=== PATIENT | female | born 1995 | race Two or more races ===

== ENCOUNTER 2021-06-20 14:25 | Inpatient (IN) | payer OTHER ==
[~2021-06-20] VITALS: Ht 167.6 cm; Wt 106.6 kg
[2021-06-20] MEDS ORDERED: IPRATROPIUM BROMIDE (0.02%) 0.5MG/2.5ML NEB HHN ONE (17:15)
[2021-06-20] MEDS ORDERED: LACTATED RINGERS 1,000 ML IV SCH (17:15)
[2021-06-20] MEDS ORDERED: DEXAMETHASONE 4MG/ML 1ML VIAL IV ONE (17:15)
[2021-06-20] MEDS ORDERED: ALBUTEROL (0.083%) 2.5MG/3ML NEB HHN ONE (17:15)
[2021-06-20 17:18] LABS: BASOPHILS % 0.2 % (0.0-2.0); HEMATOCRIT. 43.8 % (36.0-48.0); HEMOGLOBIN. 14.3 g/dL (12.0-16.0); LYMPHOCYTES % 19.4 % (20.0-50.0); MEAN CORPUSCULAR HEMOGLOBIN 26.2 pg (28.0-32.0); MEAN CORPUSCULAR VOLUME 80.5 fL (81.0-99.0); MEAN PLATELET VOLUME 8.6 fl (7.4-10.4); MONOCYTES % 5.2 % (2.0-8.0); NEUTROPHILS % 75.2 % (40.0-76.0); PLATELET 234 x1000/uL (130-400); RED BLOOD CELL COUNT 5.44 mill/uL (4.2-5.4); RED CELL DISTRIBUTION WIDTH 13.6 % (11.6-14.6)
[2021-06-20 17:24] LABS: CHLORIDE 106 mEq/L (98-107)
[2021-06-20] MEDS ORDERED: KETOROLAC 15MG/ML VIAL IV ONE (17:45)
[2021-06-20 18:20] LABS: CLARITY URINE CLEAR (CLEAR); COLOR URINE ORANGE (YELLOW); KETONES URINE NEGATIVE (NEGATIVE); LEUKOCYTE ESTERASE URINE TRACE (NEGATIVE); NITRITE URINE NEGATIVE (NEGATIVE); OCCULT BLOOD URINE 3+ (NEGATIVE); PH URINE 6.5 (4.5-8.0); PROTEIN URINE 3+ (NEGATIVE); SPECIFIC GRAVITY URINE 1.012 (1.005-1.030)
[2021-06-20] MEDS ORDERED: KETOROLAC 30MG/ML VIAL IV NR (18:30)
[2021-06-20 23:40] VITALS: BP 128/69
[2021-06-21] MEDS ORDERED: ACETAMINOPHEN 325MG TABLET PO PRN (00:15)
[2021-06-21] MEDS ORDERED: ENOXAPARIN 40MG/0.4ML SYR SUBCUT SCH (00:15)
[2021-06-21 00:30] VITALS: BP_SYST 119; BP_SYST 128; BP_DIAS 69
[2021-06-21] MEDS ORDERED: PRED5TAB48 PO (02:14)
[2021-06-21] MEDS ORDERED: ALBU6.7H9 INH (02:14)
[2021-06-21] MEDS: ALBUTEROL 6.7GM HFA INHALER ORI SCH ×4 (02:44→17:22)
[2021-06-21] MEDS: CEFTRIAXONE 1,000 MG in DEXTROSE 5% WATER 50 ML IV SCH (02:44)
[2021-06-21] MEDS: AZITHROMYCIN 500 MG in DEXT 5% WATER 250 ML IV SCH (02:45)
[2021-06-21 04:00] VITALS: BP 132/88
[2021-06-21 08:00] VITALS: BP 117/77
[2021-06-21] MEDS: FAMOTIDINE 20MG TABLET PO SCH ×2 (09:10→20:03)
[2021-06-21] MEDS: DEXAMETHASONE 10 MG/ML VIAL IV SCH (09:10)
[2021-06-21] MEDS: ENOXAPARIN 30MG/0.3ML SYR SUBCUT SCH ×2 (09:11→20:04)
[2021-06-21 12:00] VITALS: BP 123/79
[2021-06-21 16:00] VITALS: BP 132/72
[2021-06-21] MEDS ORDERED: ONDANSETRON HCL 4MG/2ML INJ IV PRN (16:15)
[2021-06-21] MEDS ORDERED: MAGNESIUM/ALUMINUM HYDROXIDE/SIMETHICONE 30ML UDC PO PRN (16:15)
[2021-06-21] MEDS ORDERED: CLONIDINE 0.1MG TABLET PO PRN (16:15)
[2021-06-21 20:00] VITALS: BP 115/62
[2021-06-21] MEDS: HYDROCODONE/ACETAMINOPHEN 5/325MG TABLET PO PRN (20:05)
[2021-06-22 00:13] VITALS: BP 118/72
[2021-06-22] MEDS: ALBUTEROL 6.7GM HFA INHALER ORI SCH ×4 (00:57→17:37)
[2021-06-22] MEDS: CEFTRIAXONE 1,000 MG in DEXTROSE 5% WATER 50 ML IV SCH (01:03)
[2021-06-22] MEDS: AZITHROMYCIN 500 MG in DEXT 5% WATER 250 ML IV SCH (02:37)
[2021-06-22] MEDS: GUAIFENESIN-DM 200MG-20MG/10ML UDC PO PRN ×3 (03:53→22:16)
[2021-06-22 04:00] VITALS: BP 130/87
[2021-06-22] MEDS: HYDROCODONE/ACETAMINOPHEN 5/325MG TABLET PO PRN ×3 (05:36→23:20)
[2021-06-22 06:13] LABS: BASOPHILS % 0.2 % (0.0-2.0); EOSINOPHILS % 0.2 % (0.0-5.0); HEMATOCRIT. 37.6 % (36.0-48.0); HEMOGLOBIN. 12.7 g/dL (12.0-16.0); LYMPHOCYTES % 29.2 % (20.0-50.0); MEAN CORPUSCULAR HEMOGLOBIN 27.2 pg (28.0-32.0); MEAN CORPUSCULAR VOLUME 80.5 fL (81.0-99.0); MEAN PLATELET VOLUME 8.1 fl (7.4-10.4); MONOCYTES % 11.7 % (2.0-8.0); NEUTROPHILS % 58.7 % (40.0-76.0); PLATELET 288 x1000/uL (130-400); RED BLOOD CELL COUNT 4.67 mill/uL (4.2-5.4); RED CELL DISTRIBUTION WIDTH 13.6 % (11.6-14.6)
[2021-06-22 06:22] LABS: CHLORIDE 106 mEq/L (98-107)
[2021-06-22 08:00] VITALS: BP 119/72
[2021-06-22] MEDS: DEXAMETHASONE 10 MG/ML VIAL IV SCH (08:24)
[2021-06-22] MEDS: FAMOTIDINE 20MG TABLET PO SCH ×2 (08:24→20:33)
[2021-06-22] MEDS: ENOXAPARIN 30MG/0.3ML SYR SUBCUT SCH ×2 (08:25→20:33)
[2021-06-22 12:00] VITALS: BP 117/57
[2021-06-22 16:00] VITALS: BP 124/80
[2021-06-22] MEDS: POTASSIUM CHLORIDE 20MEQ/PACKET PO NR ×3 (17:36→18:07)
[2021-06-22] MEDS ORDERED: POTASSIUM CHLORIDE 20MEQ/PACKET PO NR (17:45)
[2021-06-22 20:00] VITALS: BP 122/78
[2021-06-23] VITALS: BP 114/75
[2021-06-23] MEDS: CEFTRIAXONE 1,000 MG in DEXTROSE 5% WATER 50 ML IV SCH (02:17)
[2021-06-23] MEDS: AZITHROMYCIN 500 MG in DEXT 5% WATER 250 ML IV SCH (03:04)
[2021-06-23 04:00] VITALS: BP 107/60
[2021-06-23] MEDS: ALBUTEROL 6.7GM HFA INHALER ORI SCH ×4 (05:17→17:42)
[2021-06-23 08:00] VITALS: BP 114/73
[2021-06-23] MEDS: HYDROCODONE/ACETAMINOPHEN 5/325MG TABLET PO PRN (09:03)
[2021-06-23] MEDS: ENOXAPARIN 30MG/0.3ML SYR SUBCUT SCH ×2 (09:04→21:28)
[2021-06-23] MEDS: DEXAMETHASONE 10 MG/ML VIAL IV SCH (09:04)
[2021-06-23] MEDS: FAMOTIDINE 20MG TABLET PO SCH ×2 (09:04→21:28)
[2021-06-23] MEDS: GUAIFENESIN-DM 200MG-20MG/10ML UDC PO PRN ×2 (09:08→17:42)
[2021-06-23 12:00] VITALS: BP 108/64
[2021-06-23] MEDS ORDERED: LORAZEPAM 2MG/ML CPJ IM PRN (15:15)
[2021-06-23 16:00] VITALS: BP 111/51
[2021-06-24] MEDS: HYDROCODONE/ACETAMINOPHEN 5/325MG TABLET PO PRN (01:29)
[2021-06-24] MEDS: ALBUTEROL 6.7GM HFA INHALER ORI SCH ×5 (01:29→23:16)
[2021-06-24] MEDS: CEFTRIAXONE 1,000 MG in DEXTROSE 5% WATER 50 ML IV SCH (01:31)
[2021-06-24] MEDS: AZITHROMYCIN 500 MG in DEXT 5% WATER 250 ML IV SCH (01:32)
[2021-06-24 08:00] VITALS: BP 104/56
[2021-06-24] MEDS: FAMOTIDINE 20MG TABLET PO SCH ×2 (08:21→20:40)
[2021-06-24] MEDS: DEXAMETHASONE 10 MG/ML VIAL IV SCH (08:21)
[2021-06-24] MEDS: ENOXAPARIN 30MG/0.3ML SYR SUBCUT SCH ×2 (08:22→20:40)
[2021-06-24 12:00] VITALS: BP 103/64
[2021-06-24 16:00] VITALS: BP 103/65
[2021-06-24 20:00] VITALS: BP 106/65
[2021-06-25] VITALS: BP 96/62
[2021-06-25] MEDS: CEFTRIAXONE 1,000 MG in DEXTROSE 5% WATER 50 ML IV SCH (02:00)
[2021-06-25] MEDS: AZITHROMYCIN 500 MG in DEXT 5% WATER 250 ML IV SCH (03:00)
[2021-06-25 04:00] VITALS: BP 90/56
[2021-06-25] MEDS: ALBUTEROL 6.7GM HFA INHALER ORI SCH ×3 (06:00→23:13)
[2021-06-25 08:00] VITALS: BP 96/58
[2021-06-25] MEDS: DEXAMETHASONE 10 MG/ML VIAL IV SCH (08:14)
[2021-06-25] MEDS: FAMOTIDINE 20MG TABLET PO SCH ×2 (08:14→21:09)
[2021-06-25] MEDS: ENOXAPARIN 30MG/0.3ML SYR SUBCUT SCH ×2 (08:15→21:09)
[2021-06-25 12:00] VITALS: BP 94/55
[2021-06-25 16:00] VITALS: BP 99/48
[2021-06-25 20:00] VITALS: BP 115/73
[2021-06-25] MEDS ORDERED: NALOXONE HCL 0.4MG/ML VIAL IV PRN (22:15)
[2021-06-26] VITALS: BP 102/61
[2021-06-26 04:00] VITALS: BP 102/63
[2021-06-26] MEDS: ALBUTEROL 6.7GM HFA INHALER ORI SCH ×3 (06:11→18:50)
[2021-06-26 08:00] VITALS: BP 103/68
[2021-06-26] MEDS: ENOXAPARIN 30MG/0.3ML SYR SUBCUT SCH ×2 (08:34→21:56)
[2021-06-26] MEDS: DEXAMETHASONE 10 MG/ML VIAL IV SCH (08:34)
[2021-06-26] MEDS: FAMOTIDINE 20MG TABLET PO SCH ×2 (08:34→21:56)
[2021-06-26] MEDS: GUAIFENESIN-DM 200MG-20MG/10ML UDC PO PRN (08:37)
[2021-06-26 12:00] VITALS: BP 115/71
[2021-06-26 12:21] LABS: BG BASE EXCESS 2.6 mmol/L (-2.0-2.0); BG CARBOXYHEMOGLOBIN 0.2 % (0.5-1.5); BG DEOXYHEMOGLOBIN 9.6 % (0.0-5.0); BG FRACTION INSPIRED OXYGEN 21; BG HCO3 ACT 26.2 mmol/L (22.0-26.0); BG METHEMOGLOBIN 0.2 % (0.0-1.5); BG OXYGEN SATURATION 90.4 % (92.0-98.5); BG PCO2 37.2 mmHg (35.0-45.0); BG PH 7.466 (7.350-7.450); BG PO2 58.2 mmHg (75.0-100.0); BG SAMPLE SITE RIGHT RADIAL; BG TOTAL HEMOGLOBIN 14.5 g/dL (12.0-18.0); BG VENT MODE ROOM AIR
[2021-06-26 16:00] VITALS: BP 109/66
[2021-06-26 20:00] VITALS: BP 114/73
[2021-06-27] VITALS: BP 111/70
[2021-06-27] MEDS: ALBUTEROL 6.7GM HFA INHALER ORI SCH ×5 (00:24→23:59)
[2021-06-27 04:00] VITALS: BP 109/70
[2021-06-27 08:00] VITALS: BP 115/72
[2021-06-27] MEDS: DEXAMETHASONE 10 MG/ML VIAL IV SCH (08:35)
[2021-06-27] MEDS: FAMOTIDINE 20MG TABLET PO SCH ×2 (08:35→21:37)
[2021-06-27] MEDS: ENOXAPARIN 30MG/0.3ML SYR SUBCUT SCH ×2 (08:36→21:37)
[2021-06-27 12:00] VITALS: BP 90/54
[2021-06-27 16:00] VITALS: BP 124/80
[2021-06-27 20:00] VITALS: BP 112/65
[2021-06-28] VITALS: BP 103/61
[2021-06-28 04:00] VITALS: BP 98/58
[2021-06-28] MEDS: ALBUTEROL 6.7GM HFA INHALER ORI SCH (06:16)
[2021-06-28 08:00] VITALS: BP 96/60
[2021-06-28] MEDS: ENOXAPARIN 30MG/0.3ML SYR SUBCUT SCH (08:16)
[2021-06-28] MEDS: FAMOTIDINE 20MG TABLET PO SCH (08:16)
[2021-06-28] MEDS: DEXAMETHASONE 10 MG/ML VIAL IV SCH (08:16)
[2021-06-28 12:00] VITALS: BP 107/60
[2021-06-28 13:09] VITALS: BP 107/60
[2021-06-28] MEDS ORDERED: LIDOCAINE HCL/PF 1% 2ML VIAL ONE (14:28)
[2021-06-28 14:57] VITALS: BP 102/58
[2021-06-28 15:12] LABS: BG BASE EXCESS -2.9 mmol/L (-2.0-2.0); BG CARBOXYHEMOGLOBIN 0.2 % (0.5-1.5); BG DEOXYHEMOGLOBIN 8.2 % (0.0-5.0); BG HCO3 ACT 20.6 mmol/L (22.0-26.0); BG METHEMOGLOBIN 0.2 % (0.0-1.5); BG OXYGEN SATURATION 91.8 % (92.0-98.5); BG OXYHEMOGLOBIN 91.4 % (94.0-97.0); BG PCO2 32.3 mmHg (35.0-45.0); BG PH 7.422 (7.350-7.450); BG PO2 63.8 mmHg (75.0-100.0); BG SAMPLE SITE RIGHT BRACHIAL; BG TOTAL HEMOGLOBIN 14.1 g/dL (12.0-18.0); BG VENT MODE ROOM AIR
== END 2021-06-28 16:20 | disposition home or self-care (01) | DRG 871 ==
LOC: ER 14:36 → 7WST 19:50 → ENRESERV 22:40
PROVIDERS: ADMIT Internal Medicine; ATTEND Internal Medicine
PROC: 5A09357 Assistance with Respiratory Ventilation, Less than 24 Consecutive Hours, Continuous Positive Airway Pressure (ICD-10-PCS; principal; 2021-06-20)
DX: A41.89 Other specified sepsis (principal); U07.1 COVID-19; J96.01 Acute respiratory failure with hypoxia; J12.82 Pneumonia due to coronavirus disease 2019; N39.0 Urinary tract infection, site not specified; E66.9 Obesity, unspecified; J45.909 Unspecified asthma, uncomplicated; F41.9 Anxiety disorder, unspecified; R74.01 Elevation of levels of liver transaminase levels; Z68.37 Body mass index [BMI] 37.0-37.9, adult
CPT/HCPCS: 36415; 36600; 71045; 80048; 80053; 80076; 81003; 82375; 82728; 82805; 83615; 83880; 84484; 85025; 85379; 86140; 87426; 93005; 94640; 94660; 99285; C9803; J0456; J0696; J1100; J1650; J1885; J3490; J7040; J7060; U0003; U0005